=== PATIENT | female | born 1970 | race Caucasian/White ===

== ENCOUNTER 2018-12-18 01:25 | Inpatient (IN) | payer MEDICAID, OTHER ==
[~2018-12-18] VITALS: Ht 157.5 cm; Wt 72.6 kg
[2018-12-18] MEDS ORDERED: MAGNESIUM/ALUMINUM HYDROXIDE/SIMETHICONE 30ML UDC PO STA (02:55)
[2018-12-18] MEDS ORDERED: MORPHINE SULFATE 4 MG/ML CPJ (NOT FOR IM USE) IV STA (02:55)
[2018-12-18] MEDS ORDERED: ONDANSETRON HCL 4MG/2ML INJ IV STA (02:55)
[2018-12-18 02:59] LABS: BASOPHILS % 0.5 % (0.0-2.0); EOSINOPHILS % 1.5 % (0.0-5.0); HEMATOCRIT. 26.6 % (36.0-48.0); HEMOGLOBIN. 8.1 g/dL (12.0-16.0); LYMPHOCYTES % 21.5 % (20.0-50.0); MEAN CORPUSCULAR HEMOGLOBIN 19.4 pg (28.0-32.0); MEAN CORPUSCULAR VOLUME 63.5 fL (81.0-99.0); MEAN PLATELET VOLUME 8.8 fl (7.4-10.4); MONOCYTES % 8.2 % (2.0-8.0); NEUTROPHILS % 68.3 % (40.0-76.0); PLATELET 220 x1000/uL (130-400); RED BLOOD CELL COUNT 4.19 mill/uL (4.2-5.4)
[2018-12-18 03:02] LABS: CHLORIDE 109 mEq/L (98-107)
[2018-12-18 03:31] LABS: PROTHROMBIN TIME 10.4 sec (9.6-11.0)
[2018-12-18 04:41] LABS: PLATELET ESTIMATE NORMAL
[2018-12-18] MEDS ORDERED: METRONIDAZOLE 500 MG PREMIX 100 ML IV ONE (06:30)
[2018-12-18] MEDS ORDERED: CEFTRIAXONE 1 G PREMIX 50 ML IV ONE (06:30)
[2018-12-18 07:58] LABS: CLARITY URINE CLOUDY (CLEAR); COLOR URINE YELLOW (YELLOW); KETONES URINE NEGATIVE (NEGATIVE); LEUKOCYTE ESTERASE URINE NEGATIVE (NEGATIVE); NITRITE URINE NEGATIVE (NEGATIVE); OCCULT BLOOD URINE NEGATIVE (NEGATIVE); PROTEIN URINE NEGATIVE (NEGATIVE); SPECIFIC GRAVITY URINE 1.029 (1.005-1.030); UROBILINOGEN URINE 0.2 E.U./dL (0.2-1.0)
[2018-12-18 08:00] VITALS: BP 111/62
[2018-12-18 10:01] VITALS: BP 111/62
[2018-12-18] MEDS ORDERED: KETOROLAC 30MG/ML VIAL IV PRN (11:45)
[2018-12-18 12:00] VITALS: BP 105/65
[2018-12-18] MEDS: SODIUM CHLORIDE 0.9% 1,000 ML IV SCH (13:22)
[2018-12-18] MEDS: PIPERACILLIN/TAZ 3.375G PREMIX 50 ML IV SCH ×2 (13:47→21:49)
[2018-12-18] MEDS ORDERED: PIPERACILLIN/TAZOBACTAM 3.375GM/50ML PREMIX IV ONE (14:00)
[2018-12-18 16:00] VITALS: BP 107/68
[2018-12-18] MEDS: IRON SUCROSE COMPLEX 100 MG/5 ML ML IV SCH (17:27)
[2018-12-18 20:00] VITALS: BP 112/59
[2018-12-18 20:33] LABS: TOTAL IRON BINDING CAPACITY 448 ug/dL (250-450)
[2018-12-18 20:34] LABS: TOTAL IRON BINDING CAPACITY 445 ug/dL (250-450)
[2018-12-19 00:07] VITALS: BP 104/52
[2018-12-19] MEDS: SODIUM CHLORIDE 0.9% 1,000 ML IV SCH ×2 (01:52→08:44)
[2018-12-19 04:00] VITALS: BP 109/49
[2018-12-19] MEDS: PIPERACILLIN/TAZ 3.375G PREMIX 50 ML IV SCH (05:20)
[2018-12-19 08:00] VITALS: BP 99/65
[2018-12-19] MEDS: IRON SUCROSE COMPLEX 100 MG/5 ML ML IV SCH (08:44)
[2018-12-19 12:00] VITALS: BP_SYST 108; BP_SYST 111; BP_DIAS 59; BP_DIAS 66
[2018-12-19 13:28] VITALS: BP 122/64
== END 2018-12-19 13:50 | disposition home or self-care (01) ==
LOC: ER 01:25 → 6EST 06:45 → ENRESERV 09:13 → ER 09:44
PROVIDERS: ADMIT Internal Medicine; ATTEND Internal Medicine
DX: K80.00 Calculus of gallbladder with acute cholecystitis without obstruction (principal); K76.0 Fatty (change of) liver, not elsewhere classified; Z98.891 History of uterine scar from previous surgery
CPT/HCPCS: 36415; 76705; 80076; 82728; 83540; 83550; 86850; 86900; 93005; 96374; 96375; 99285; J0696; J1885; J2270; J2405; J2543; J3490; J7030